=== PATIENT | female | born 1995 | race Caucasian/White ===

== ENCOUNTER 2016-10-26 21:06 | Emergency (ER) | payer MEDICAID ==
[~2016-10-26] VITALS: Ht 162.6 cm; Wt 72.6 kg
[2016-10-26 21:06] VITALS: BP_SYST 138
[2016-10-26 22:24] LABS: BILIRUBIN,URINE NEGATIVE (NEGATIVE); BLOOD, URINE NEGATIVE (NEGATIVE); CLARITY/URINE CLEAR (CLEAR); COLOR,URINE YELLOW (YELLOW); GLUCOSE,URINE NEGATIVE (NEGATIVE); KETONES,URINE NEGATIVE (NEGATIVE); LEUKOCYTE ESTERASE ,URINE NEGATIVE (NEGATIVE); NITRITE, URINE NEGATIVE (NEGATIVE); PROTEIN URINE NEGATIVE (NEGATIVE); UROBILINOGEN,URINE 0.2 (0.2-1.0)
[2016-10-26 23:45] VITALS: BP_SYST 138
== END 2016-10-26 23:45 | disposition home or self-care (01) ==
LOC: SED 21:06
DX: S46.911A Strain of unspecified muscle, fascia and tendon at shoulder and upper arm level, right arm, initial encounter (principal); M54.2 Cervicalgia; R07.89 Other chest pain; V89.2XXA Person injured in unspecified motor-vehicle accident, traffic, initial encounter; Y93.89 Activity, other specified; Y92.488 Other paved roadways as the place of occurrence of the external cause; Y99.8 Other external cause status
CPT/HCPCS: 73030; 81003; 81025; 99284

== ENCOUNTER 2018-01-28 20:02 | Emergency (ER) | payer MEDICAID ==
[~2018-01-28] VITALS: Ht 162.6 cm; Wt 89.4 kg
[2018-01-28 20:25] VITALS: BP_SYST 136
--- NOTE | 2018-01-28 20:25 | NUR ---
Patient to ER bed 7 to gown for evaluation. Side rails up.
--- NOTE | 2018-01-28 20:40 | NUR ---
Patient arrived to ED stating she is 8 weeks with lower left abdominal pain, lower back pain, and vaginal sensitivity. Pain is rated at 4/10. Patient states she went to the bathroom around 1830 and noticed brown discharge. Denies any respiratory distress, N/V, Fever, or hot flashes. Patient is able to ambulate to the bathroom with a steady gait. Patient is aaox4 and can verbalize her needs.
--- NOTE | 2018-01-28 20:50 | NUR ---
Urine specimen collected. HCG test positive.
--- NOTE | 2018-01-28 20:53 | NUR ---
ER at bedside examining patient.
[2018-01-28] MEDS ORDERED: NACL 0.9% 1,000 ML IV ONE (21:00)
[2018-01-28 21:08] LABS: BILIRUBIN,URINE NEGATIVE (NEGATIVE); CLARITY/URINE CLEAR (CLEAR); COLOR,URINE YELLOW (YELLOW); GLUCOSE,URINE NEGATIVE (NEGATIVE); KETONES,URINE NEGATIVE (NEGATIVE); LEUKOCYTE ESTERASE ,URINE NEGATIVE (NEGATIVE); NITRITE, URINE NEGATIVE (NEGATIVE); PH,URINE 5.5 (5.0-8.0); PROTEIN URINE NEGATIVE (NEGATIVE); UROBILINOGEN,URINE 0.2 (0.2-1.0)
[2018-01-28 21:18] LABS: BLOOD, URINE TRACE (NEGATIVE)
[2018-01-28 21:19] LABS: BACTERIA,URINE FEW /HPF (None Seen); MUCUS,URINE None Seen /LPF (None Seen); RBC,URINE NONE SEEN /HPF (0-3); WBC,URINE 0-3 /HPF (0-3)
[2018-01-28 22:20] LABS: BASOPHILS # (AUTO) 0.1 K/uL (0.0-0.2); EOSINOPHILS # (AUTO) 0.4 K/uL (0.0-0.4); EOSINOPHILS % (AUTO) 4.5 % (0.0-4.0); HEMATOCRIT 41.1 % (36-48); HEMOGLOBIN 12.9 g/dL (12.0-16.0); LYMPHOCYTES # (AUTO) 3.1 K/uL (1.0-5.5); LYMPHOCYTES % (AUTO) 34.4 % (20.5-51.5); MEAN CORPUSCULAR HEMOGLOBIN 28 pg (27-31); MEAN CORPUSCULAR HGB CONC 31 % (32-36); MEAN CORPUSCULAR VOLUME 88 fL (79.0-98.0); MONOCYTES # (AUTO) 0.5 K/uL (0.0-1.0); MONOCYTES % (AUTO) 5.9 % (1.7-9.3); NEUTROPHILS # (AUTO) 4.9 K/uL (1.8-7.7); NEUTROPHILS % (AUTO) 54.2 % (40.0-70.0); RED BLOOD CELL COUNT(AUTO) 4.66 MIL/uL (4.2-6.2)
[2018-01-28 22:26] LABS: INR 0.9 (0.8-1.2); PLATELET COUNT (AUTO) 380 K/uL (130-430); PROTHROMBIN TIME 9.7 SECS (9.5-12.5)
[2018-01-28 22:27] LABS: CALCIUM 9.6 mg/dL (8.4-11.0); CREATININE 0.7 mg/dL (0.55-1.30); POTASSIUM 4.1 mmol/L (3.5-5.1)
[2018-01-28 22:32] LABS: ALBUMIN 3.9 g/dL (3.4-4.8); TOTAL BILIRUBIN 0.3 mg/dL (0.0-1.0)
[2018-01-28 23:35] VITALS: BP_SYST 136
== END 2018-01-28 23:35 | disposition home or self-care (01) ==
LOC: SED 20:02
DX: O26.891 Other specified pregnancy related conditions, first trimester (principal); R10.30 Lower abdominal pain, unspecified; Z3A.01 Less than 8 weeks gestation of pregnancy; R03.0 Elevated blood-pressure reading, without diagnosis of hypertension
CPT/HCPCS: 36415; 76801; 76817; 80053; 81000; 85025; 85610; 99284; J7030

== ENCOUNTER 2018-01-30 14:57 | Emergency (ER) | payer MEDICAID ==
[~2018-01-30] VITALS: Ht 162.6 cm; Wt 89.4 kg
[2018-01-30 15:01] VITALS: BP_SYST 114
[2018-01-30 15:28] LABS: BASOPHILS # (AUTO) 0.1 K/uL (0.0-0.2); BASOPHILS % (AUTO) 1.5 % (0.0-2.0); EOSINOPHILS # (AUTO) 0.2 K/uL (0.0-0.4); EOSINOPHILS % (AUTO) 2.3 % (0.0-4.0); HEMATOCRIT 36.7 % (36-48); HEMOGLOBIN 12.3 g/dL (12.0-16.0); LYMPHOCYTES # (AUTO) 2.7 K/uL (1.0-5.5); LYMPHOCYTES % (AUTO) 28.4 % (20.5-51.5); MEAN CORPUSCULAR HEMOGLOBIN 29 pg (27-31); MEAN CORPUSCULAR HGB CONC 34 % (32-36); MEAN CORPUSCULAR VOLUME 88 fL (79.0-98.0); MONOCYTES # (AUTO) 0.4 K/uL (0.0-1.0); MONOCYTES % (AUTO) 4.3 % (1.7-9.3); NEUTROPHILS % (AUTO) 63.5 % (40.0-70.0); PLATELET COUNT (AUTO) 341 K/uL (130-430); RED BLOOD CELL COUNT(AUTO) 4.17 MIL/uL (4.2-6.2); RED CELL DISTRIBUTION WIDTH 12.2 % (9.0-15.0); WHITE BLOOD COUNT (AUTO) 9.4 K/uL (4.8-10.8)
[2018-01-30 15:56] LABS: CALCIUM 9.3 mg/dL (8.4-11.0); CREATININE 0.67 mg/dL (0.55-1.30); POTASSIUM 3.9 mmol/L (3.5-5.1)
[2018-01-30 16:07] LABS: BILIRUBIN,URINE NEGATIVE (NEGATIVE); CLARITY/URINE CLEAR (CLEAR); COLOR,URINE YELLOW (YELLOW); GLUCOSE,URINE NEGATIVE (NEGATIVE); KETONES,URINE TRACE (NEGATIVE); LEUKOCYTE ESTERASE ,URINE NEGATIVE (NEGATIVE); NITRITE, URINE NEGATIVE (NEGATIVE); PH,URINE 5.5 (5.0-8.0); PROTEIN URINE NEGATIVE (NEGATIVE); UROBILINOGEN,URINE 0.2 (0.2-1.0)
[2018-01-30 16:18] LABS: PROTHROMBIN TIME 9.9 SECS (9.5-12.5)
[2018-01-30 16:22] LABS: ALBUMIN 4.1 g/dL (3.4-4.8); TOTAL BILIRUBIN 0.3 mg/dL (0.0-1.0)
[2018-01-30 16:23] LABS: BLOOD, URINE TRACE (NEGATIVE)
[2018-01-30 16:55] LABS: BACTERIA,URINE FEW /HPF (None Seen); MUCUS,URINE 1+ /LPF (None Seen); RBC,URINE 0-3 /HPF (0-3); WBC,URINE 0-3 /HPF (0-3)
[2018-01-30 17:01] VITALS: BP_SYST 128
== END 2018-01-30 16:56 | disposition home or self-care (01) ==
LOC: SED 14:57
DX: O26.851 Spotting complicating pregnancy, first trimester (principal); Z3A.01 Less than 8 weeks gestation of pregnancy
CPT/HCPCS: 36415; 80053; 81000-TC; 84702-TC; 85025; 85610-TC; 85730-TC; 86900; 86901; 99283

== ENCOUNTER 2018-02-05 09:41 | Emergency (ER) | payer MEDICAID ==
[~2018-02-05] VITALS: Ht 162.6 cm; Wt 89.4 kg
[2018-02-05 09:55] VITALS: BP_SYST 141
--- NOTE | 2018-02-05 09:55 | NUR ---
Placed in room 7. Placed on stoner hand, blood pressure machine and pulse oximeter. To gown for exam. Side rails up.
--- NOTE | 2018-02-05 10:00 | NUR ---
Pt presents to ED for persistent vaginal bleeding x 1 week. Pt states that she was in the ED last week for similar symptoms but at that point her spotting had started to improve. Pt reports that she was instructed to follow-up with an OBGYN but she reports not being able to get an appointment until February 17, 2018. Pt states that her bleeding has become heavier again and that she is going through about 3 pads/day. Pt is complaining of associated abdominal cramping. Otherwise, pt denies fever, chills, nausea, vomiting, diarrhea, dysuria, recent travel, recent trauma or injuries, or other medical complaints at this time.
--- NOTE | 2018-02-05 10:05 | NUR ---
ER Dr. Moreno at bedside examining patient.
[2018-02-05 10:53] LABS: BASOPHILS # (AUTO) 0.1 K/uL (0.0-0.2); BASOPHILS % (AUTO) 1.3 % (0.0-2.0); EOSINOPHILS # (AUTO) 0.4 K/uL (0.0-0.4); EOSINOPHILS % (AUTO) 5.9 % (0.0-4.0); HEMATOCRIT 39.7 % (36-48); HEMOGLOBIN 13.3 g/dL (12.0-16.0); LYMPHOCYTES # (AUTO) 2.4 K/uL (1.0-5.5); LYMPHOCYTES % (AUTO) 33.7 % (20.5-51.5); MEAN CORPUSCULAR HEMOGLOBIN 29 pg (27-31); MEAN CORPUSCULAR HGB CONC 34 % (32-36); MEAN CORPUSCULAR VOLUME 86 fL (79.0-98.0); MONOCYTES # (AUTO) 0.5 K/uL (0.0-1.0); MONOCYTES % (AUTO) 6.6 % (1.7-9.3); NEUTROPHILS # (AUTO) 3.7 K/uL (1.8-7.7); NEUTROPHILS % (AUTO) 52.5 % (40.0-70.0); PLATELET COUNT (AUTO) 354 K/uL (130-430); RED BLOOD CELL COUNT(AUTO) 4.64 MIL/uL (4.2-6.2); RED CELL DISTRIBUTION WIDTH 12.2 % (9.0-15.0); WHITE BLOOD COUNT (AUTO) 7.1 K/uL (4.8-10.8)
--- NOTE | 2018-02-05 11:05 | NUR ---
Patient c/o pain 11/17, Dr Moreno aware. No new orders.
--- NOTE | 2018-02-05 11:09 | NUR ---
Patient taken to US via wheelchair by US tech. Patient transferred to wheelchair independently, holding hand. Severiano on gurney 90% filled with blood. Will continue to monitor upon return.
[2018-02-05 12:48] VITALS: BP_SYST 122
--- NOTE | 2018-02-05 12:48 | NUR ---
Patient given written and verbal discharge instructions and verbalizes understanding. ER MD Moreno discussed with patient the results and treatment provided. Patient in stable condition. ID arm band removed. IV catheter removed intact and dressing applied, no active bleeding. No Rx given. Patient educated on pain management and to follow up with PMD. Pain Scale 2. Opportunity for questions provided and answered. Medication side effect fact sheet provided.
== END 2018-02-05 12:48 | disposition home or self-care (01) ==
LOC: SED 09:41
DX: O03.9 Complete or unspecified spontaneous abortion without complication (principal); R03.0 Elevated blood-pressure reading, without diagnosis of hypertension; Z3A.01 Less than 8 weeks gestation of pregnancy
CPT/HCPCS: 36415; 76801; 76805-TC; 76817; 84702-TC; 85025; 86900; 86901; 99284

== ENCOUNTER 2018-02-05 14:14 | Day surgery (SDC) | payer MEDICAID ==
--- NOTE | 2018-02-04 19:30 | NUR ---
OPENING NOTE Received patient awake AOx4 and resting on gurney w/ HOB elevated and in no sign of distress. Bed is locked to lowest position and call light near. Updated board. Family at bedside. Will monitor. Addendum: 02/06/18 at 0550 by Avani Ledezma RN entered incorrect date, see 02/05
[~2018-02-05] VITALS: Ht 162.6 cm; Wt 89.4 kg
--- NOTE | 2018-02-05 14:19 | NUR ---
Placed in room 07 . Placed on conveyor monitor, blood pressure machine and pulse oximeter. To gown for exam. Side rails up.
[2018-02-05 14:20] VITALS: BP_SYST 106
--- NOTE | 2018-02-05 14:20 | NUR ---
Pt AAOx4 presents to ED via wheelchair c/o vaginal bleeding and new onset of multiple episodes of non-bloody vomiting s/p discharge from ED today with dx of miscarriage. Pt approximately 6 weeks . Pt states she had nothing to eat today. Pt tachypneic at 25 RPM, accessory muscle use. No other injuries/complaints per pt/noted. Will continue to monitor.
--- NOTE | 2018-02-05 14:25 | NUR ---
Orthostatics: Layin/67 Sittin/49 Standin/65
--- NOTE | 2018-02-05 14:26 | NUR ---
ER Dr. Moreno at bedside examining patient.
[2018-02-05] MEDS ORDERED: NACL 0.9% 1,000 ML IV ONE ×3 (14:30→16:45)
--- NOTE | 2018-02-05 14:36 | NUR ---
Last meal: 02/04/18, 2200; Last fluid intake: 02/05/18, 1400
[2018-02-05] MEDS ORDERED: KETOROLAC TROMETHAMINE 30 MG VIAL IVP ONE (14:45)
--- NOTE | 2018-02-05 14:45 | NUR ---
Pt returned to ER because she began to saturate pads and clothes with blood. Pt had vomitting x1 and dizziness. Pt stated felt dizzy, passed out for 30 seconds x 3. Returned to ER. Will continue to monitor.
[2018-02-05] MEDS ORDERED: KETOROLAC TROMETHAMINE 30 MG VIAL ONE (14:53)
[2018-02-05 15:00] LABS: BASOPHILS # (AUTO) 0.1 K/uL (0.0-0.2); BASOPHILS % (AUTO) 0.7 % (0.0-2.0); EOSINOPHILS # (AUTO) 0.2 K/uL (0.0-0.4); EOSINOPHILS % (AUTO) 2.2 % (0.0-4.0); HEMATOCRIT 34.3 % (36-48); HEMOGLOBIN 11.5 g/dL (12.0-16.0); LYMPHOCYTES # (AUTO) 1.9 K/uL (1.0-5.5); LYMPHOCYTES % (AUTO) 20.5 % (20.5-51.5); MEAN CORPUSCULAR HEMOGLOBIN 29 pg (27-31); MEAN CORPUSCULAR HGB CONC 34 % (32-36); MONOCYTES # (AUTO) 0.2 K/uL (0.0-1.0); MONOCYTES % (AUTO) 2.3 % (1.7-9.3); NEUTROPHILS # (AUTO) 6.9 K/uL (1.8-7.7); NEUTROPHILS % (AUTO) 74.3 % (40.0-70.0); PLATELET COUNT (AUTO) 347 K/uL (130-430); RED BLOOD CELL COUNT(AUTO) 3.91 MIL/uL (4.2-6.2); RED CELL DISTRIBUTION WIDTH 12.3 % (9.0-15.0)
[2018-02-05 15:01] LABS: WHITE BLOOD COUNT (AUTO) 9.3 K/uL (4.8-10.8)
[2018-02-05 15:05] LABS: MEAN CORPUSCULAR VOLUME 88 fL (79.0-98.0)
[2018-02-05 15:22] LABS: PROTHROMBIN TIME 10.2 SECS (9.5-12.5)
--- NOTE | 2018-02-05 15:45 | NUR ---
Pt states she does not take any home medications.
--- NOTE | 2018-02-05 16:07 | NUR ---
Last void: 02/05/18 1600
[2018-02-05 16:11] LABS: BASOPHILS # (AUTO) 0.1 K/uL (0.0-0.2); BASOPHILS % (AUTO) 0.5 % (0.0-2.0); EOSINOPHILS # (AUTO) 0.2 K/uL (0.0-0.4); EOSINOPHILS % (AUTO) 1.2 % (0.0-4.0); HEMATOCRIT 29.6 % (36-48); LYMPHOCYTES # (AUTO) 1.7 K/uL (1.0-5.5); LYMPHOCYTES % (AUTO) 12.8 % (20.5-51.5); MEAN CORPUSCULAR HEMOGLOBIN 30 pg (27-31); MEAN CORPUSCULAR HGB CONC 34 % (32-36); MEAN CORPUSCULAR VOLUME 88 fL (79.0-98.0); MONOCYTES # (AUTO) 0.6 K/uL (0.0-1.0); MONOCYTES % (AUTO) 4.7 % (1.7-9.3); NEUTROPHILS # (AUTO) 11.1 K/uL (1.8-7.7); NEUTROPHILS % (AUTO) 80.8 % (40.0-70.0); PLATELET COUNT (AUTO) 296 K/uL (130-430); RED BLOOD CELL COUNT(AUTO) 3.38 MIL/uL (4.2-6.2); RED CELL DISTRIBUTION WIDTH 12.3 % (9.0-15.0)
[2018-02-05 16:12] LABS: WHITE BLOOD COUNT (AUTO) 13.7 K/uL (4.8-10.8)
--- NOTE | 2018-02-05 16:22 | NUR ---
Order entered for 2U PRBC to be transfused for acute hemmorhage.
[2018-02-05] MEDS ORDERED: CEFAZOLIN 1 GM IVPB PREMIX 50 ML IV ONE (17:10)
[2018-02-05] MEDS ORDERED: SEVOFLURANE 15 MIN GAS INH ONE (17:10)
[2018-02-05] MEDS ORDERED: METHYLERGONOVINE MALEATE 0.2 MG/ML AMP IM ONE (17:10)
[2018-02-05] MEDS ORDERED: NS 1000 ML IV.SOLN IV ONE (17:10)
[2018-02-05] MEDS ORDERED: MIDAZOLAM HCL 5 MG/5 ML VIAL IVP ONE (17:10)
[2018-02-05] MEDS ORDERED: PROPOFOL 200MG/ 20ML VIAL (DIPRIVAN) IV ONE (17:10)
[2018-02-05] MEDS ORDERED: fentaNYL CITRATE/PF 100 MCG/2 ML AMP IVP ONE (17:10)
--- NOTE | 2018-02-05 17:17 | NUR ---
Pt taken to OR via josi; Dr. Hayward and [employer] escorting.
--- NOTE | 2018-02-05 17:17 | NUR ---
Dr. Hayward at bedside
--- NOTE | 2018-02-05 17:19 | NUR ---
Patient will be admitted to care of DR. DUFFY. Admitted to OR unit. Belongings list completed. Report will be given at bedside.
[2018-02-05] MEDS ORDERED: ONDANSETRON HCL 4 MG/2 ML VIAL IVP PRN ×2 (17:30→18:00)
[2018-02-05] MEDS ORDERED: IBUPROFEN 800 MG TABLET PO PRN (17:30)
[2018-02-05] MEDS ORDERED: OXYCODONE/ACETAMINOPHEN 5-325 TABLET PO PRN (17:30)
[2018-02-05] MEDS ORDERED: MEPERIDINE HCL/PF 50 MG/ML AMP IVP PRN (17:30)
[2018-02-05] MEDS ORDERED: MIDAZOLAM HCL 2 MG/2 ML VIAL (VERSED) ONE (17:35)
[2018-02-05] MEDS ORDERED: fentaNYL CITRATE/PF 100 MCG/2 ML AMP ONE (17:35)
[2018-02-05 17:50] VITALS: BP_SYST 101
[2018-02-05] MEDS ORDERED: KETOROLAC TROMETHAMINE 30 MG VIAL IVP PRN (18:00)
[2018-02-05] MEDS ORDERED: fentaNYL CITRATE/PF 100 MCG/2 ML AMP IVP PRN ×2 (18:00)
--- NOTE | 2018-02-05 18:49 | NUR ---
Post Op Notes: Received report from delphine from Or s/p Dilatation and Curettage under observation.Routine post op vital signs taken,afebrile.Will monitor for any bleeding.Call light with in reach. Bed locked at lowest position.Family at the bedside. Addendum: 02/05/18 at 1856 by Tara Og RN corrected above name: Or nurse Traylor.
--- NOTE | 2018-02-05 19:08 | NUR ---
Report Notes: Endorsed to night nurse charly,patient in stable condition.Call light with in reach.Bed locked at lowest position.
--- NOTE | 2018-02-05 19:30 | NUR ---
OPENING NOTE Received patient awake AOx4 and resting on gurney w/ HOB elevated and in no sign of distress. Bed is locked to lowest position and call light near. Updated board. Family at bedside. Will monitor.
--- NOTE | 2018-02-05 20:41 | NUR ---
NOTES Patient is sitting upright in bed, drinking water. VSS; B/P 126/78, HR 91. No further needs presently. Safety measures in place, will monitor.
--- NOTE | 2018-02-05 23:40 | NUR ---
DISCHARGE Patient discharged in stable condition, v/s B/P 128/71, HR 85, 98% on room air, resp 16, temp 98.0 temporal scan. IV removed from Rt hand and LFA, IV catheters intact and dressings applied and no active bleeding. Patient given D/C instructions. Patient verbalized understanding. Ambulatory with steady gait for discharge to home. ID band removed. Patient educated on pain management. All belongings sent with patient.
== END 2018-02-05 23:40 | disposition home or self-care (01) ==
LOC: SED 14:14 → SDS 17:20
PROVIDERS: ATTEND Specialist
DX: O03.4 Incomplete spontaneous abortion without complication (principal); Z79.01 Long term (current) use of anticoagulants; Z79.899 Other long term (current) drug therapy
CPT/HCPCS: 36415; 59812; 82962; 85025; 85610; 86886; 86900; 86901; 86920; 88305; J0690; J1885; J2210; J2250; J2704; J3010; J3465; J7030